=== PATIENT | female | born 1990 | race Caucasian/White ===

== ENCOUNTER 2018-12-14 05:57 | Inpatient (IN) | payer OTHER ==
[2018-12-14] MEDS ORDERED: SODIUM CHLORIDE 0.9% FLUSH 10 ML SOL IV PRN (05:58)
[2018-12-14] MEDS ORDERED: FENTANYL 100MCG/2ML SOL IV PRN (05:58)
[2018-12-14] MEDS ORDERED: CARBOPROST 250 MCG/ML SOL IM PRN (05:58)
[2018-12-14] MEDS ORDERED: METHYLERGONOVINE MALEATE 0.2 MG/ML SOL IM PRN (05:58)
[2018-12-14] MEDS ORDERED: OXYTOCIN 10000 MU/ML SOL IM PRN (05:58)
[2018-12-14] MEDS ORDERED: LACTATED RINGERS 1,000 ML IV PRN (05:58)
[2018-12-14] MEDS ORDERED: MEPIVACAINE HCL 1% MPF 30 ML/VIAL SOL INFIL PRN (05:58)
[2018-12-14 07:30] LABS: BASOPHILS % (AUTO) 1 % (0-3); EOSINOPHILS % (AUTO) 1 % (0-9); HEMATOCRIT 35 % (35-47); HEMOGLOBIN 11.1 gm/dl (12.0-15.5); LYMPHOCYTES % (AUTO) 25.5 % (10-50); MEAN CORPUSCULAR HEMOGLOBIN 27.1 pg (27.0-32.0); MEAN CORPUSCULAR HGB CONC 31.6 gm/dl (32.0-36.0); MEAN CORPUSCULAR VOLUME 86 fL (81-99); MONOCYTES % (AUTO) 7.4 % (0-12); NEUTROPHILS % (AUTO) 65.4 % (37-80)
[2018-12-14] MEDS: SODIUM CHLORIDE 0.9% FLUSH 10 ML SOL IV SCH ×3 (08:00→22:41)
[2018-12-14] MEDS ORDERED: TERBUTALINE SULFATE 1 MG/ML SOL SC PRN (15:45)
[2018-12-14] MEDS ORDERED: LACTATED RINGERS 1,000 ML IV SCH (15:45)
[2018-12-14] MEDS ORDERED: OXYTOCIN 10000 MU/ML 20,000 MU in LACTATED RINGERS 1,000 ML IV SCH (15:45)
[2018-12-14] MEDS ORDERED: ROPIVACAINE HYDROCHLORIDE 5 MG/ML SOL ONE (15:49)
[2018-12-14] MEDS ORDERED: DIPHENHYDRAMINE 25 MG CAP PO ONE (22:15)
[2018-12-14] MEDS ORDERED: DIPHENHYDRAMINE 25 MG CAP ONE (22:18)
[2018-12-15] MEDS: SODIUM CHLORIDE 0.9% FLUSH 10 ML SOL IV SCH ×3 (06:02→21:58)
[2018-12-15] MEDS ORDERED: ROPIVACAINE HYDROCHLORIDE 5 MG/ML SOL ONE (12:41)
[2018-12-15] MEDS ORDERED: LIDOCAINE HCL 2% MPF 10 ML SOL ONE ×2 (12:41→17:27)
[2018-12-15] MEDS ORDERED: FENTANYL 250 MCG/ 5ML SOL ONE (12:41)
[2018-12-15] MEDS ORDERED: NALOXONE HYDROCHLORIDE 0.4 MG/ML SOL IV PRN (12:46)
[2018-12-15] MEDS ORDERED: DIPHENHYDRAMINE 50 MG/ML SOL IV PRN (12:46)
[2018-12-15] MEDS ORDERED: NALBUPHINE HCL 20 MG/ML SOL IV PRN (12:46)
[2018-12-15] MEDS ORDERED: EPHEDRINE SULFATE 50 MG/ML SOL IV PRN (12:46)
[2018-12-15] MEDS: LACTATED RINGERS 1,000 ML IV SCH ×6 (12:50→21:26)
[2018-12-15] MEDS ORDERED: PHENYLEPHRINE HYDROCHLORIDE 10 MG/ML SOL ONE (16:26)
[2018-12-15] MEDS ORDERED: OXYTOCIN 10000 MU/ML SOL ONE (16:26)
[2018-12-15] MEDS ORDERED: ONDANSETRON HCL 4 MG/2 ML SOL ONE (16:26)
[2018-12-15] MEDS ORDERED: AZITHROMYCIN 500 MG PDS IV ONE ×2 (16:29→16:30)
[2018-12-15] MEDS ORDERED: CEFAZOLIN SODIUM 1 GM PDS ONE (16:29)
[2018-12-15] MEDS ORDERED: CITRIC ACID/SODIUM CITRATE SOL PO ONE (16:34)
[2018-12-15] MEDS ORDERED: SODIUM BICARBONATE 4.2% (PED) 0.5 MEQ/ML SOL IV ONE (16:35)
[2018-12-15] MEDS ORDERED: METHYLERGONOVINE MALEATE 0.2 MG/ML SOL ONE (17:20)
[2018-12-15] MEDS ORDERED: CARBOPROST 250 MCG/ML SOL IM ONE (17:20)
[2018-12-15] MEDS ORDERED: LACTATED RINGERS 1,000 ML with OXYTOCIN 10000 MU/ML 20 MU IV ONE (17:23)
[2018-12-15 17:30] LABS: ABO AB; ANTIBODY SCREEN Negative; RH TYPE Positive
[2018-12-15] MEDS ORDERED: BUPIVACAINE/EPI 0.25% 50 ML SOL ONE (17:56)
[2018-12-15] MEDS ORDERED: KETOROLAC TROMETHAMINE 30 MG/ML SOL ONE (18:42)
[2018-12-15 18:49] LABS: APPEARANCE,URINE Slightly Cloudy; BILIRUBIN,URINE NEGATIVE (NEGATIVE); COLOR,URINE Yellow; GLUCOSE, URINE (UA) NEGATIVE (NEGATIVE); KETONES,URINE 2+ (NEGATIVE); LEUKOCYTE ESTERASE ,URINE NEGATIVE (NEGATIVE); NITRATE,URINE NEGATIVE (NEGATIVE); OCCULT BLOOD,URINE 3+ (NEG-TRACE); PH,URINE 6.5; UROBILINOGEN,URINE 0.2 (0.2-1.0 EU)
[2018-12-15 19:23] LABS: BACTERIA NEGATIVE (< 1+); CRYSTALS 1+ AMORPH URATES (0-3 AVE/HPF); WBC,URINE 0-1 (0-5AV/HPF)
[2018-12-15] MEDS ORDERED: METHYLERGONOVINE MALEATE 0.2 MG TAB PO PRN (19:58)
[2018-12-15] MEDS ORDERED: BISACODYL 10 MG SUP PR PRN (19:58)
[2018-12-15] MEDS ORDERED: FLEET ENEMA PR PRN (19:58)
[2018-12-15] MEDS ORDERED: WITCH HAZEL 1 EA PAD TOP PRN (19:58)
[2018-12-15] MEDS ORDERED: KETOROLAC TROMETHAMINE 30 MG/ML SOL IV PRN (19:58)
[2018-12-15] MEDS ORDERED: DIPHENHYDRAMINE 25 MG CAP PO PRN (19:58)
[2018-12-15] MEDS ORDERED: BENZOCAINE/MENTHOL 1 SPR TOP PRN (19:58)
[2018-12-15] MEDS ORDERED: ONDANSETRON HCL 4 MG/2 ML SOL IV PRN (19:58)
[2018-12-15] MEDS ORDERED: TEMAZEPAM 15MG 15 MG CAP PO PRN (19:58)
[2018-12-15 20:24] LABS: BASOPHILS % (AUTO) 0 % (0-3); EOSINOPHILS % (AUTO) 0 % (0-9); HEMATOCRIT 32 % (35-47); HEMOGLOBIN 10.5 gm/dl (12.0-15.5); LYMPHOCYTES % (AUTO) 6.1 % (10-50); MEAN CORPUSCULAR HEMOGLOBIN 27.4 pg (27.0-32.0); MEAN CORPUSCULAR HGB CONC 32.6 gm/dl (32.0-36.0); MEAN CORPUSCULAR VOLUME 84 fL (81-99); MONOCYTES % (AUTO) 4.1 % (0-12); NEUTROPHILS % (AUTO) 89.6 % (37-80)
[2018-12-15 20:36] LABS: ALBUMIN 2.1 gm/dl (3.4-5.0); BILIRUBIN,TOTAL 0.8 mg/dl (0.2-1.0); CALCIUM 7.8 mg/dl (8.5-10.1); CARBON DIOXIDE 22.3 mEq/L (21-32); CREATININE 0.68 mg/dl (0.60-1.00); POTASSIUM 3.5 mMol/L (3.5-5.1); TOTAL PROTEIN 4.9 gm/dl (6.4-8.2)
[2018-12-15] MEDS: IBUPROFEN 600 MG TAB PO PRN (20:50)
[2018-12-15] MEDS: APAP/HYDROCODONE 1 EACH TABLET PO PRN (20:50)
[2018-12-15] MEDS: DOCUSATE SODIUM 100 MG SGL PO SCH (21:33)
[2018-12-15] MEDS: BACITRACIN 500 U/GM OIN TOP SCH (22:15)
[2018-12-16] MEDS: LACTATED RINGERS 1,000 ML IV SCH ×2 (01:13→11:52)
[2018-12-16] MEDS: APAP/HYDROCODONE 1 EACH TABLET PO PRN ×3 (05:30→18:17)
[2018-12-16] MEDS ORDERED: BACITRACIN 500 U/GM OIN TOP ONE (09:28)
[2018-12-16] MEDS: DOCUSATE SODIUM 100 MG SGL PO SCH ×2 (09:32→21:35)
[2018-12-16] MEDS: IBUPROFEN 600 MG TAB PO PRN ×3 (09:32→21:35)
[2018-12-16] MEDS: BACITRACIN 500 U/GM OIN TOP SCH ×2 (09:32→21:35)
[2018-12-16] MEDS: SODIUM CHLORIDE 0.9% FLUSH 10 ML SOL IV SCH (12:03)
[2018-12-17] MEDS: APAP/HYDROCODONE 1 EACH TABLET PO PRN ×2 (00:34→06:55)
[2018-12-17] MEDS: IBUPROFEN 600 MG TAB PO PRN ×3 (03:57→18:18)
[2018-12-17] MEDS ORDERED: BACITRACIN 500 U/GM OIN TOP ONE (07:51)
[2018-12-17] MEDS: DOCUSATE SODIUM 100 MG SGL PO SCH ×2 (10:02→20:30)
[2018-12-17] MEDS: BACITRACIN 500 U/GM OIN TOP SCH ×2 (10:02→20:30)
[2018-12-18 00:41] VITALS: O2SAT 98
[2018-12-18] MEDS: IBUPROFEN 600 MG TAB PO PRN ×2 (03:36→09:26)
[2018-12-18 08:24] VITALS: BP 117/77; PULSE 72; RESP 18; TEMP 98.1
[2018-12-18] MEDS: DOCUSATE SODIUM 100 MG SGL PO SCH (08:52)
[2018-12-18] MEDS: BACITRACIN 500 U/GM OIN TOP SCH (08:54)
== END 2018-12-18 10:15 | disposition home or self-care (01) | DRG 788 ==
LOC: UNDOADMOB 05:57 → OB 05:57 → OBSVTOIN 05:57 → UNDOADMOB 12-15 20:16 → OB 12-15 20:16 → INTOOBSV 12-15 20:16 → UNDODISIN 12-18 10:15
PROVIDERS: ADMIT Family Medicine; ATTEND Family Medicine
PROC: 0U7C7ZZ Dilation of Cervix, Via Natural or Artificial Opening (ICD-10-PCS; 2018-12-14)
PROC: 3E033VJ Introduction of Other Hormone into Peripheral Vein, Percutaneous Approach (ICD-10-PCS; 2018-12-14)
PROC: 10907ZC Drainage of Amniotic Fluid, Therapeutic from Products of Conception, Via Natural or Artificial Opening (ICD-10-PCS; 2018-12-15)
PROC: 10D00Z1 Extraction of Products of Conception, Low, Open Approach (ICD-10-PCS; principal; 2018-12-15 16:37)
DX: O61.0 Failed medical induction of labor (principal); Z3A.40 40 weeks gestation of pregnancy; Z37.0 Single live birth; O66.9 Obstructed labor, unspecified
CPT/HCPCS: 36415; 59025; 80053; 81001; 85018; 85025; 86850; 86900; 86901; J0456; J0690; J1885; J2210; J2405; J2590; J2795; J3010; J3105; A9270-GY; J2370; J3490